=== PATIENT | female | born 2005 | race Caucasian/White ===

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

== ENCOUNTER 2023-09-26 08:54 | Emergency (ER) | payer MEDICAID ==
[2023-09-26] MEDS ORDERED: SUBLIMAZE 100 MCG/2 ML IV ONE (09:27)
[2023-09-26] MEDS ORDERED: Zofran 4 MG/2 ML VIAL IV ONE (09:27)
[2023-09-26] MEDS ORDERED: Sodium Chloride 0.9% 1000 ML 1,000 ML IV STA (09:27)
[2023-09-26] MEDS ORDERED: SUBLIMAZE 100 MCG/2 ML ONE (09:34)
[2023-09-26] MEDS ORDERED: Zofran 4 MG/2 ML VIAL ONE (09:34)
[2023-09-26] MEDS ORDERED: Sodium Chloride 0.9% 1000 ML 1,000 ML ONE (09:35)
[2023-09-26 09:37] VITALS: TEMP 99.5
[2023-09-26 09:48] LABS: HCG URINE TEST NEGATIVE (NEGATIVE)
[2023-09-26 09:51] LABS: Appearance Cloudy (Clear); Bacteria Few /HPF (None Seen); Bilirubin Negative (Negative); Blood Moderate (Negative); Epithelial Cells None Seen /HPF (None Seen); Glucose, Urine Negative (Negative); Hyaline Casts NONE SEEN /LPF (0-2); Ketones Negative (Negative); Leukocyte Esterase Moderate (Negative); Nitrite Negative (Negative); Protein,Urine Dip 100 (Negative); RBC >100 /HPF (0-5); Urobilinogen 0.2 mg/dL (0.2); WBC >100 /HPF (0-5)
[2023-09-26 09:55] LABS: ADD URINE CULTURE? YES (NO)
--- NOTE | 2023-09-26 09:55 | ERPHSYRPT ---
- History of Present Illness Time Seen by Provider: 09/26/23 08:56 Historian: patient, family Exam Limitations: no limitations Patient Subjective Stated Complaint: C/O left flank pain that started 2 days ago but is now more constant and severe since 3am today Triage Nursing Assessment: Patient is alert and oriented but tearful. Patient is restless and displaying s/s of pain. NO SOB. No cough. Skin tone normal. C/O increased pain to left flank when pressing on right side of back and abdomen. Physician History: 18 years old female presented in the ER with chief complaint of left flank pain for last couple of days off and on which got worse early this morning waking her from sleep. Moderate to severe sharp radiating to left lower quadrant, aggravated with palpation movements and unable to find a comfortable spot. She reports some difficulty urination yesterday which is better now. Denies any hematuria urgency or frequency. Has nausea and vomited once prior to arrival. Does have questionable element of constipation. No fever or chills reported. No known sick contact. Allergies/Adverse Reactions: No Known Drug Allergies Allergy (Verified 09/26/23 09:29) Home Medications: norgestimate-ethinyl estradioL [Qro-Tl-Qbhbib Tablet] 1 tab PO DAILY 09/26/23 [History] Hx Tetanus, Diphtheria Vaccination/Date Given: Yes Hx Influenza Vaccination/Date Given: No Hx Pneumococcal Vaccination/Date Given: No Immunizations Up to Date: Yes Travel Risk - International Travel Have you traveled outside of the country in past 3 weeks: No - Coronavirus Screening Are you exhibiting any of the following symptoms?: No Close contact with a COVID-19 positive Pt in past 14-21 Days: No - Vaccine Status Have you recieved a Covid-19 vaccination: No - Review of Systems Constitutional: No Symptoms Eyes: No Symptoms Ears, Nose, & Throat: No Symptoms Respiratory: No Symptoms Cardiac: No Symptoms Abdominal/Gastrointestinal: Abdominal Pain, Nausea, Vomiting Genitourinary Symptoms: No Symptoms Musculoskeletal: No Symptoms Skin: No Symptoms Neurological: No Symptoms Psychological: No Symptoms Hematologic/Lymphatic: No Symptoms Immunological/Allergic: No Symptoms - Past Medical History Pertinent Past Medical History: Yes Neurological History: No Pertinent History ENT History: No Pertinent History Cardiac History: No Pertinent History Respiratory History: No Pertinent History Endocrine Medical History: No Pertinent History Musculoskeletal History: Other GI Medical History: No Pertinent History History: No Pertinent History Psycho-Social History: No Pertinent History Female Reproductive Disorders: Abnormal Uterine Bleeding Other Medical History: ovarian cysts - Past Surgical History Past Surgical History: Yes Neuro Surgical History: No Pertinent History Cardiac: No Pertinent History Respiratory: No Pertinent History Gastrointestinal: Appendectomy Genitourinary: No Pertinent History Musculoskeletal: No Pertinent History Female Surgical History: No Pertinent History Other Surgical History: PT HAD WISDOM TEETH OUT 02/2020 - Social History Smoking Status: Never smoker Exposure to second hand smoke: No Drug Use: none Patient Lives Alone: No - Female History Hx Last Menstrual Period: 3 weeks ago Hx Now: (unkn) - Nursing Vital Signs Nursing Vital Signs: Initial Vital Signs Temperature 99.5 F 09/26/23 09:20 Pulse Rate 91 H 09/26/23 09:20 Respiratory Rate 22 09/26/23 09:20 Blood Pressure 111/92 09/26/23 09:20 O2 Sat by Pulse Oximetry 100 09/26/23 09:20 Pain Scale Pain Intensity 9 - Physical Exam General Appearance: no apparent distress, alert Eye Exam: PERRL/EOMI Ears, Nose, Throat Exam: normal ENT inspection Neck Exam: normal inspection, supple, full range of motion Respiratory Exam: normal breath sounds, lungs clear Cardiovascular Exam: regular rate/rhythm, normal heart sounds Gastrointestinal/Abdomen Exam: soft, normal bowel sounds, tenderness (Left flank/left lower quadrant) Back Exam: CVA tenderness Extremity Exam: normal inspection, normal range of motion Neurologic Exam: alert, oriented x 3, proposal specialist II-XII nml as tested Skin Exam: normal color SpO2 Interpretation: normal SpO2: 100 O2 Delivery: Room Air Ordered Tests: Active Orders 24 hr Category Date Time Status IV Insertion STAT Care 09/26/23 09:27 Active NPO (ED) STAT Care 09/26/23 09:27 Active ABDOMEN AND PELVIS W/0 CONTRAS [CT] Stat Exams 09/26/23 09:28 Completed CBC W DIFF Stat Lab 09/26/23 10:00 Completed CMP Stat Lab 09/26/23 10:00 Completed CULTURE,URINE Stat Lab 09/26/23 09:28 Received HCG QUALITATIVE, URINE Stat Lab 09/26/23 09:28 Completed LIPASE Stat Lab 09/26/23 10:00 Completed UA W/RFX UR CULTURE Stat Lab 09/26/23 09:28 Completed Medication Summary Discontinued Medications Generic Name Dose Route Start Last Admin Trade Name Howard PRN Reason Stop Dose Admin Fentanyl Citrate 50 mcg 09/26/23 09:27 09/26/23 09:36 Fentanyl Citrate 100 Mcg/2 Ml* Vial IV 09/26/23 09:28 50 mcg STAT ONE Administration Fentanyl Citrate Confirm 09/26/23 09:34 Fentanyl Citrate 100 Mcg/2 Ml* Vial Administered 09/26/23 09:35 Dose 100 mcg .ROUTE .STK-MED ONE Sodium Chloride 1,000 mls @ 999 mls/hr 09/26/23 09:27 09/26/23 10:40 Sodium Chloride 0.9% 1000 Ml IV 09/26/23 10:27 Infused .Q1H1M STA Infusion Sodium Chloride Confirm 09/26/23 09:35 Sodium Chloride 0.9% 1000 Ml Administered 09/26/23 09:36 Dose 1,000 mls @ ud .ROUTE .STK-MED ONE Ceftriaxone Sodium/Dextrose 2 g in 50 mls @ 100 mls/hr 09/26/23 10:37 09/26/23 11:14 Rocephin 2 Gm-D5w 50ml Bag IV 09/26/23 11:06 Infused STAT STA Infusion Ceftriaxone Sodium/Dextrose Confirm 09/26/23 10:41 Rocephin 2 Gm-D5w 50ml Bag Administered 09/26/23 10:42 Dose 2 g in 50 mls @ ud IV .STK-MED ONE Ketorolac Tromethamine 30 mg 09/26/23 10:50 09/26/23 11:00 Ketorolac Tromethamine 30 Mg/Ml Inj IV 09/26/23 10:51 30 mg STAT ONE Administration Ketorolac Tromethamine Confirm 09/26/23 10:59 Ketorolac Tromethamine 30 Mg/Ml Inj Administered 09/26/23 11:00 Dose 30 mg .ROUTE .STK-MED ONE Ondansetron HCl 4 mg 09/26/23 09:27 09/26/23 09:36 Ondansetron Hcl 4 Mg/2 Ml Vial IV 09/26/23 09:28 4 mg STAT ONE Administration Ondansetron HCl Confirm 09/26/23 09:34 Ondansetron Hcl 4 Mg/2 Ml Vial Administered 09/26/23 09:35 Dose 4 mg .ROUTE .STK-MED ONE Lab/Rad Data: Laboratory Result Diagrams 09/26/23 10:00 09/26/23 10:00 Laboratory Results 09/26/23 09/26/23 09/26/23 Range/Units 10:00 10:00 09:28 WBC 11.3 H (4.0-10.5) x10^3/uL RBC 4.02 L (4.1-5.4) x10^6/uL Hgb 11.8 L (12.0-16.0) g/dL Hct 36.3 (35-47) % MCV 90.3 (78-100) fL MCH 29.4 (26-32) pg MCHC 32.5 (32-36) g/dL RDW 12.2 (11.5-14.0) % Plt Count 239 (150-450) x10^3/uL MPV 10.7 (7.5-11.0) fL Gran % 79.9 H (36.0-66.0) % Immature Gran % (Auto) 0.4 (0.00-0.4) % Nucleat RBC Rel Count 0.0 (0.00-0.1) % Eos # (Auto) 0.05 (0-0.5) x10^3/uL Immature Gran # (Auto) 0.04 H (0.00-0.03) x10^3u/L Absolute Lymphs (auto) 1.47 (1.0-4.6) x10^3/uL Absolute Monos (auto) 0.68 (0.0-1.3) x10^3/uL Absolute Nucleated RBC 0.00 (0.00-0.01) x10^3u/L Lymphocytes % 13.1 L (24.0-44.0) % Monocytes % 6.0 (0.0-12.0) % Eosinophils % 0.4 (0.00-5.0) % Basophils % 0.2 (0.0-0.4) % Absolute Granulocytes 9.00 H (1.4-6.9) x10^3/uL Basophils # 0.02 (0-0.4) x10^3/uL Sodium 137 (137-145) mmol/L Potassium 3.6 (3.5-5.1) mmol/L Chloride 104 (98-107) mmol/L Carbon Dioxide 24 (22-30) mmol/L Anion Gap 12.3 (5-15) MEQ/L BUN 5 L (7-17) mg/dL Creatinine 0.56 (0.52-1.04) mg/dL Estimated GFR 133.9 ML/MIN Glucose 99 (74-106) mg/dL Calcium 9.0 (8.4-10.2) mg/dL Total Bilirubin 0.80 (0.2-1.3) mg/dL AST 78 H (14-36) U/L ALT 30 (0-35) U/L Alkaline Phosphatase 56 (38-126) U/L Serum Total Protein 7.4 (6.3-8.2) g/dL Albumin 4.3 (3.5-5.0) g/dL Lipase 42 (23-300) U/L Urine Color (Yellow) Urine Appearance (Clear) Urine pH (4.6-8.0) Ur Specific [place] (1.005-1.030) Urine Protein (Negative) Urine Glucose (UA) (Negative) mg/dL Urine Ketones (Negative) Urine Blood (Negative) Urine Nitrite (Negative) Urine Bilirubin (Negative) Urine Urobilinogen (0.2) mg/dL Ur Leukocyte Esterase (Negative) U Hyaline Cast (Auto) (0-2) /LPF Urine Microscopic RBC (0-5) /HPF Urine Microscopic WBC (0-5) /HPF Ur Epithelial Cells (None Seen) /HPF Urine Bacteria (None Seen) /HPF Urine Culture Reflexed (NO) Urine HCG, Qual NEGATIVE (NEGATIVE) 09/26/23 Range/Units 09:28 WBC (4.0-10.5) x10^3/uL RBC (4.1-5.4) x10^6/uL Hgb (12.0-16.0) g/dL Hct (35-47) % MCV (78-100) fL MCH (26-32) pg MCHC (32-36) g/dL RDW (11.5-14.0) % Plt Count (150-450) x10^3/uL MPV (7.5-11.0) fL Gran % (36.0-66.0) % Immature Gran % (Auto) (0.00-0.4) % Nucleat RBC Rel Count (0.00-0.1) % Eos # (Auto) (0-0.5) x10^3/uL Immature Gran # (Auto) (0.00-0.03) x10^3u/L Absolute Lymphs (auto) (1.0-4.6) x10^3/uL Absolute Monos (auto) (0.0-1.3) x10^3/uL Absolute Nucleated RBC (0.00-0.01) x10^3u/L Lymphocytes % (24.0-44.0) % Monocytes % (0.0-12.0) % Eosinophils % (0.00-5.0) % Basophils % (0.0-0.4) % Absolute Granulocytes (1.4-6.9) x10^3/uL Basophils # (0-0.4) x10^3/uL Sodium (137-145) mmol/L Potassium (3.5-5.1) mmol/L Chloride (98-107) mmol/L Carbon Dioxide (22-30) mmol/L Anion Gap (5-15) MEQ/L BUN (7-17) mg/dL Creatinine (0.52-1.04) mg/dL Estimated GFR ML/MIN Glucose (74-106) mg/dL Calcium (8.4-10.2) mg/dL Total Bilirubin (0.2-1.3) mg/dL AST (14-36) U/L ALT (0-35) U/L Alkaline Phosphatase (38-126) U/L Serum Total Protein (6.3-8.2) g/dL Albumin (3.5-5.0) g/dL Lipase (23-300) U/L Urine Color Yellow (Yellow) Urine Appearance Cloudy A (Clear) Urine pH 7.0 (4.6-8.0) Ur Specific [place] 1.010 (1.005-1.030) Urine Protein 100 A (Negative) Urine Glucose (UA) Negative (Negative) mg/dL Urine Ketones Negative (Negative) Urine Blood Moderate A (Negative) Urine Nitrite Negative (Negative) Urine Bilirubin Negative (Negative) Urine Urobilinogen 0.2 (0.2) mg/dL Ur Leukocyte Esterase Moderate A (Negative) U Hyaline Cast (Auto) NONE SEEN (0-2) /LPF Urine Microscopic RBC >100 A (0-5) /HPF Urine Microscopic WBC >100 A (0-5) /HPF Ur Epithelial Cells None Seen (None Seen) /HPF Urine Bacteria Few A (None Seen) /HPF Urine Culture Reflexed YES (NO) Urine HCG, Qual (NEGATIVE) - Progress Progress: improved, re-examined Progress Note: 09/26/23 11:44 18 years old is evaluated for left-sided abdominal pain with nausea and 1 episode of vomiting with some difficulty urination. She is given symptomatic treatment with fentanyl and Toradol, on reevaluation her pain is completely resolved. Repeated abdominal exam is soft nontender with good bowel sounds. Workup showed normal white count, fairly unremarkable chemistries, does have UTI and given a dose of Rocephin in here. CT abdomen pelvis is negative for any acute intra-abdominal pelvic findings on the left side. Patient I believe has UTI with ascending infection. I will treat her with cefpodoxime. Recommended taking Tylenol ibuprofen, increase hydration and outpatient follow-up. Discussed signs symptoms of worsening needing return to ER which she seems understanding. Stable for discharge. Counseled pt/family regarding: lab results, diagnosis, need for follow-up, rad results Medical Desision Making - Independent Historian Additional History obtained from: Mother - Diagnostic Testing Diagnostic test were ordered, analyzed, and reviewed by me: Yes Radiological Interpretation: Reviewed by me, Teleradiologist Report - Risk of complications The pt has a mod risk of morbidity or mortality based on: Need for prescription drug management - Departure Departure Disposition: Home Clinical Impression: Acute left flank pain, UTI (urinary tract infection) Condition: Stable Critical Care Time: No Referrals: ROBERTO PATEL NP [Primary Care Provider] - Follow up with PCP 2 days Instructions: Severe Abdominal Pain, Adult (DC), Urinary Tract Infection, Adult (DC) Additional Instructions: Take Tylenol/ibuprofen as needed for pain. Drink plenty of fluids. Follow-up with primary care for reevaluation early next week. Return to ER for intractable abdominal pain/vomiting/fever chills/difficulty urination etc. Prescriptions: Ibuprofen 600 mg PO Q6HPRN PRN 10 Days #20 tablet PRN Reason: Pain Cefpodoxime Proxetil 200 mg [Vantin 200 mg] 200 mg PO BID 7 Days #14 tablet
[2023-09-26 10:02] LABS: BASOPHIL % 0.2 % (0.0-0.4); Basophil (Absolute #) 0.02 x10^3/uL (0-0.4); Eosinophil % 0.4 % (0.00-5.0); Eosinophil (Absolute #) 0.05 x10^3/uL (0-0.5); Hematocrit 36.3 % (35-47); Hemoglobin 11.8 g/dL (12.0-16.0); IMMATURE GRAN # 0.04 x10^3u/L (0.00-0.03); IMMATURE GRAN % 0.4 % (0.00-0.4); Lymphocyte (Absolute #) 1.47 x10^3/uL (1.0-4.6); Lymphocytes % 13.1 % (24.0-44.0); Mean Cell Volume 90.3 fL (78-100); Mean Corpuscular Hemoglobin 29.4 pg (26-32); Mean Corpuscular Hgb Concent. 32.5 g/dL (32-36); Mean Platelet Volume 10.7 fL (7.5-11.0); Monocyte (Absolute #) 0.68 x10^3/uL (0.0-1.3); Neutrophil % 79.9 % (36.0-66.0); Platelet Count 239 x10^3/uL (150-450); Red Blood Count 4.02 x10^6/uL (4.1-5.4); Red Cell Distribution Width 12.2 % (11.5-14.0); White Blood Count 11.3 x10^3/uL (4.0-10.5)
[2023-09-26 10:16] LABS: ALBUMIN 4.3 g/dL (3.5-5.0); ANION GAP 12.3 MEQ/L (5-15); BILIRUBIN,TOTAL 0.8 mg/dL (0.2-1.3); Creatinine 1 0.56 mg/dL (0.52-1.04); EST GLOMERULAR FILTRATION RATE 133.9 ML/MIN; Potassium 3.6 mmol/L (3.5-5.1); Total Protein 7.4 g/dL (6.3-8.2)
[2023-09-26] MEDS ORDERED: ROCEPHIN 2 Gm-D5w 50ML BAG** 2 G/50 ML IVPB IV STA (10:37)
[2023-09-26 10:39] VITALS: O2SAT 100
[2023-09-26] MEDS ORDERED: ROCEPHIN 2 Gm-D5w 50ML BAG** 2 G/50 ML IVPB IV ONE (10:41)
[2023-09-26] MEDS ORDERED: TORAdol 30 mg Injection IV ONE (10:50)
[2023-09-26] MEDS ORDERED: TORAdol 30 mg Injection ONE (10:59)
--- NOTE | 2023-09-26 11:02 | XRAY ---
CLINICAL HISTORY:left flank/LLQ pain COMPARISON:Last Ct study dated 09/17/2022 TECHNIQUE:CT of the abdomen and pelvis was performed with axial images as well as sagittal and coronal reconstruction images without intravenous contrast. FINDINGS: The liver is normal in size, morphology and appears unremarkable with no intrahepatic or extrahepatic bile duct dilation. Unremarkable appearing gallbladder with no stones wall thickening or pericholecystic inflammatory changes or fluid. Unremarkable appearing pancreas. No pancreatic mass or ductal dilatation is seen. Unremarkable appearing spleen. The adrenal glands are normal. The kidneys appear unremarkable with no cysts masses or hydronephrosis. The ureters are normal with no stones. Unremarkable abdominal aorta without specific evidence of aneurysm or dissection. The stomach appears unremarkable. Unremarkable appearing duodenum. Stationary course of the few calcific foci seen within the right-sided bowel loops mostly non-specific. Small Bowel and colon are non-distended with no abnormality. Clinical history of appendicectomy. No free air and no ascites. No free intraperitoneal air is seen. The bladder is unremarkable with no stones. Unremarkable uterus and ovaries. No other bony abnormality was detected. IMPRESSION: Compared to the last exam no newly developed lesions. Stationary course of the few calcific foci seen within the right-sided bowel loops mostly non-specific. Otherwise unremarkable study. Electronically Signed by: Callie Srivastava MD. (09/26/2023 10:58:24 EST)
[2023-09-26 12:03] VITALS: BP 109/64; PULSE 74; RESP 15
== END 2023-09-26 12:16 | disposition home or self-care (01) ==
LOC: ED 08:54
DX: N39.0 Urinary tract infection, site not specified (principal); R10.32 Left lower quadrant pain; R11.2 Nausea with vomiting, unspecified; Z79.899 Other long term (current) drug therapy; Z28.310 Unvaccinated for COVID-19
CPT/HCPCS: 36000; 36415; 74176; 80053; 81001; 81025; 83690; 85025; 87077; 87086; 87186; 96374; 96375; 99284; J0696; J1885; J2405; J3010

== ENCOUNTER 2024-11-29 04:44 | Emergency (ER) | payer OTHER ==
[2024-11-29 04:55] VITALS: TEMP 100.6
[2024-11-29] MEDS ORDERED: MOTRIN 400 MG ONE (05:15)
[2024-11-29] MEDS ORDERED: TYLENOL 325 MG ONE (05:15)
[2024-11-29] MEDS: MOTRIN 400 MG PO ONE (05:16)
[2024-11-29] MEDS: TYLENOL 325 MG PO STA (05:16)
--- NOTE | 2024-11-29 05:22 | ERPHSYRPT ---
- History of Present Illness Time Seen by Provider: 11/29/24 05:10 Source: patient, family Exam Limitations: no limitations Patient Subjective Stated Complaint: cough, sore throat, fever, head ache and body aches x2 days, worsening Triage Nursing Assessment: Pt ambulated into ER without diff. Pt c/o cough, sob, sore throat, rt ear pain, fever, headache and body aches x2 days. Pt's lungs clear, heart tones reg/tachy, temp 100.6. Pt has non prod cough. Physician History: This is a 19-year-old white female patient who presents to the emergency department by private vehicle accompanied by her grandmother with 2-day history of cough, sore throat, fever, body aches and chest pain associated with coughing and shortness of breath associated with coughing. She has been exposed to his sister who was diagnosed with flu a back in September 2024. Patient has no abdominal pain. She has not had any nausea vomiting or diarrhea. Timing/Duration: day(s) (2) Cough Quality/Degree: moderate, dry cough Possible Cause: no prior episodes Modifying Factors: Improves With: coughing Associated Symptoms: fever, chest pain/soreness (Only with coughing), cough, headache, muscle aches, shortness of breath (Only with coughing), sore throat Allergies/Adverse Reactions: No Known Drug Allergies Allergy (Verified 11/29/24 05:03) Home Medications: norgestimate-ethinyl estradioL [Tda-Kv-Qkvqio Tablet] 1 tab PO DAILY 09/26/23 [History] Hx Tetanus, Diphtheria Vaccination/Date Given: Yes Hx Influenza Vaccination/Date Given: No Hx Pneumococcal Vaccination/Date Given: No Travel Risk - International Travel Have you traveled outside of the country in past 3 weeks: No - Emerging Infectious Disease Are you exhibiting symptoms associated with any current EIDs: Yes Symptoms: Cough: New Onset, Fever, Headaches/Body Aches/ - Review of Systems Constitutional: Fever Eyes: No Symptoms Ears, Nose, & Throat: Throat Pain Respiratory: Cough Cardiac: No Symptoms Abdominal/Gastrointestinal: No Symptoms Genitourinary Symptoms: No Symptoms Musculoskeletal: Arthralgias, Myalgias Skin: No Symptoms Neurological: No Symptoms Psychological: No Symptoms Endocrine: No Symptoms Hematologic/Lymphatic: No Symptoms Immunological/Allergic: No Symptoms All Other Systems: Reviewed and Negative - Past Medical History Pertinent Past Medical History: Yes Neurological History: No Pertinent History ENT History: No Pertinent History Cardiac History: No Pertinent History Respiratory History: No Pertinent History Endocrine Medical History: No Pertinent History Musculoskeletal History: Other GI Medical History: No Pertinent History History: No Pertinent History Psycho-Social History: No Pertinent History Female Reproductive Disorders: Abnormal Uterine Bleeding Other Medical History: ovarian cysts - Past Surgical History Past Surgical History: Yes Neuro Surgical History: No Pertinent History Cardiac: No Pertinent History Respiratory: No Pertinent History Gastrointestinal: Appendectomy Genitourinary: No Pertinent History Musculoskeletal: No Pertinent History Female Surgical History: No Pertinent History Other Surgical History: PT HAD WISDOM TEETH OUT 02/2020 - Female History Hx Last Menstrual Period: 11/15/23 Hx Now: No - Social History Smoking Status: Never smoker Exposure to second hand smoke: Yes Drug Use: none - Social Determinants of Health Will the patient participate in the screening: Declined to provide - Nursing Vital Signs Nursing Vital Signs: Initial Vital Signs Temperature 100.6 F 11/29/24 04:53 Pulse Rate 120 H 11/29/24 04:53 Respiratory Rate 17 11/29/24 04:53 Blood Pressure 143/92 11/29/24 04:53 O2 Sat by Pulse Oximetry 99 11/29/24 04:53 Pain Scale Pain Intensity 7 - Physical Exam General Appearance: mild distress, alert, anxiety, thin Eye Exam: PERRL/EOMI, eyes nml inspection Ears, Nose, Throat Exam: moist mucous membranes, pharyngeal erythema Neck Exam: normal inspection, non-tender, supple, full range of motion Respiratory Exam: normal breath sounds, lungs clear, No chest tenderness, No respiratory distress Cardiovascular Exam: tachycardia Gastrointestinal/Abdomen Exam: soft, normal bowel sounds, No tenderness Pelvic Exam: not done Rectal Exam: not done Back Exam: normal inspection, normal range of motion, No CVA tenderness, No vertebral tenderness Extremity Exam: normal inspection, normal range of motion, pelvis stable Neurologic Exam: alert, oriented x 3, cooperative, labeling associate II-XII nml as tested, nml cerebellar function, nml station & gait, sensation nml Skin Exam: normal color, warm, dry Lymphatic Exam: No adenopathy SpO2 Interpretation: normal SpO2: 97 O2 Delivery: Room Air - Course Nursing assessment & vital signs reviewed: Yes Ordered Tests: Active Orders 24 hr Category Date Time Status CHEST 1 VIEW (PORTABLE) Stat Exams 11/29/24 05:13 Taken Medication Summary Discontinued Medications Generic Name Dose Route Start Last Admin Trade Name Howard PRN Reason Stop Dose Admin Acetaminophen 650 mg 11/29/24 05:12 11/29/24 05:16 Acetaminophen 325 Mg Tablet PO 11/29/24 05:13 650 mg STAT STA Administration Acetaminophen Confirm 11/29/24 05:15 Acetaminophen 325 Mg Tablet Administered 11/29/24 05:16 Dose 650 mg .ROUTE .STK-MED ONE Hydrocodone Bitart/Acetaminophen 10 ml 11/29/24 05:32 11/29/24 05:34 Hydrocodone/Acetaminophen 5 Ml Udcup PO 11/29/24 05:33 10 ml STAT STA Administration Hydrocodone Bitart/Acetaminophen Confirm 11/29/24 05:34 Hydrocodone/Acetaminophen 5 Ml Udcup Administered 11/29/24 05:35 Dose 10 ml .ROUTE .STK-MED ONE Ibuprofen 400 mg 11/29/24 05:13 11/29/24 05:16 Ibuprofen 400 Mg Tablet PO 11/29/24 05:14 400 mg STAT ONE Administration Ibuprofen Confirm 11/29/24 05:15 Ibuprofen 400 Mg Tablet Administered 11/29/24 05:16 Dose 400 mg .ROUTE .STK-MED ONE Lab/Rad Data: Laboratory Results 11/29/24 11/29/24 Range/Units 04:58 04:58 Influenza Type A Ag POSITIVE A (NEGATIVE) Influenza Type B Ag NEGATIVE (NEGATIVE) RSV (PCR) NEGATIVE (NEGATIVE) SARS-CoV-2 (PCR) NEGATIVE (NEGATIVE) Group A Strep Antibody NOT DETECTED (NEGATIVE) - Progress Progress: improved, re-examined Air Movement: good Progress Note: 11/29/24 06:00 My medical decision making and the assignment of low to moderate complexity of this patient's medical issue is based on review of the patient's past medical history, review of the patient's medication list, review the patient drug allergy list, history present illness and physical findings on examination. The workup in this patient includes chest x-ray, strep test and viral swabs. Differential diagnosis includes but is not limited to strep pharyngitis, viral illness, upper respiratory infection, pneumonia I interpreted the patient's preliminary chest x-ray report. There are no acute cardiopulmonary abnormalities. I interpreted the patient's laboratory data results. Patient test positive for influenza A infection Blood Culture(s) Obtained: No Antibiotics given: No Counseled pt/family regarding: lab results, diagnosis, need for follow-up, rad results Medical Desision Making - Independent Historian Additional History obtained from: Family - Diagnostic Testing Diagnostic test were ordered, analyzed, and reviewed by me: Yes Radiological Interpretation: Interpreted by me, Teleradiologist Report - Risk of complications The pt has a mod risk of morbidity or mortality based on: Need for prescription drug management - Departure Departure Disposition: Home Clinical Impression: Fever, Influenza A H1N1 infection Condition: Stable Critical Care Time: No Referrals: ROBERTO PATEL NP [Primary Care Provider] - Follow up/PCP as directed Additional Instructions: Drink plenty of cool liquids. Take your prednisone, Tamiflu and use your cough medicine as prescribed. May add ibuprofen 400 mg orally with food 3 times a day for the next 5 days to help control aches, pains and fever. Call your primary care provider today, 11/29/2024, to make arrangements for follow-up appointment for further evaluation management to be seen in the next 3 to 5 days. Use lukewarm bath or shower as discussed to help control fever as well Prescriptions: Prednisone 10 mg [Deltasone 10 mg] 10 mg PO TID #12 tablet Hydrocodone/Acetaminophen [Hydrocodone-Acetamn 7.5-325/15] 10 ml PO Q8H PRN #120 ml MDD 30 ml PRN Reason: Cough Oseltamivir 75 mg [Tamiflu 75MG Capsule] 75 mg PO BID #10 cap
[2024-11-29] MEDS ORDERED: HYDROCODONE-ACETAMIN 2.5-108/5 ML SOLUTION ONE (05:34)
[2024-11-29] MEDS: HYDROCODONE-ACETAMIN 2.5-108/5 ML SOLUTION PO STA (05:34)
[2024-11-29 05:47] LABS: INFLUENZA B NEGATIVE (NEGATIVE); RESPIRATORY SYNCTIAL VIRUS NEGATIVE (NEGATIVE); SARS-CoV-2 Xpert Express NEGATIVE (NEGATIVE)
[2024-11-29 05:48] LABS: INFLUENZA A POSITIVE (NEGATIVE)
[2024-11-29] MEDS ORDERED: Tamiflu 75MG Capsule PO ONE (05:56)
[2024-11-29] MEDS: Tamiflu 75MG Capsule PO ONE (05:57)
[2024-11-29] MEDS: DELTASONE 20 MG PO ONE (05:57)
[2024-11-29] MEDS ORDERED: DELTASONE 20 MG ONE (05:57)
[2024-11-29 06:00] VITALS: O2SAT 97
[2024-11-29 06:09] VITALS: BP 127/83; PULSE 92; RESP 18
--- NOTE | 2024-11-29 08:57 | XRAY ---
Indication: Cough. Comparison: September 02, 2021. Portable chest now demonstrates tiny right midlung calcified granuloma. Remaining heart and lungs unremarkable. Bony thorax intact. No acute findings.
== END 2024-11-29 06:20 | disposition home or self-care (01) ==
LOC: ED 04:44
DX: J10.1 Influenza due to other identified influenza virus with other respiratory manifestations (principal); R50.9 Fever, unspecified; R05.1 Acute cough; M79.10 Myalgia, unspecified site; Z79.52 Long term (current) use of systemic steroids; Z79.891 Long term (current) use of opiate analgesic; Z79.899 Other long term (current) drug therapy
CPT/HCPCS: 0241U; 71045; 87651; 99284; A9270-GY